=== PATIENT | female | born 1965 | race Caucasian/White ===

== ENCOUNTER 2019-04-28 18:52 | Inpatient (IN) | payer MEDICAID, OTHER ==
[~2019-04-28] VITALS: Ht 167.6 cm; Wt 101.7 kg
[2019-04-29 14:03] VITALS: BP 137/72
== END 2019-04-29 16:37 | disposition home or self-care (01) | DRG 313 ==
LOC: ED 21:12 → EDIP 21:19 → 5SO 22:37
PROVIDERS: ADMIT Family Medicine; ATTEND Family Medicine
DX: R07.2 Precordial pain (principal); E11.65 Type 2 diabetes mellitus with hyperglycemia; E66.9 Obesity, unspecified; Z85.118 Personal history of other malignant neoplasm of bronchus and lung; Z80.0 Family history of malignant neoplasm of digestive organs; Z83.49 Family history of other endocrine, nutritional and metabolic diseases; Z68.36 Body mass index [BMI] 36.0-36.9, adult
CPT/HCPCS: 36415; 71045; 71275; 78452; 80048; 80053; 80061; 82962; 83036; 83690; 84443; 84484; 85025; 85379; 93005; 93017; 96372; 99285; G0378; J1644; J2785; Q9967; A9502; C9898; J1815; J7030

== ENCOUNTER 2019-10-09 11:35 | Inpatient (IN) | payer MEDICAID ==
[~2019-10-09] VITALS: Ht 167.6 cm; Wt 102.1 kg
[~2019-10-09 11:35] MED LIST: AMIT50TA PO; ASPI81TA45 PO; AZIT500T PO; BENZ-17 PO; CEFD300C37 PO; CLON0.5T PO; ERTA1VIA IV; GUAI600T31 PO; HYDR-3240 PO; HYDR25TA6 PO; IBUP-1623 PO; INSU100I13 SQ-INSULIN; INSU100V14 SC; INSU100V8 SQ; LISI5TAB7 PO; LOSA100T14 PO; MELO7.5T31 PO; METF-688 PO; METF10002 PO; OLME5TAB4 PO; SIMV20TA PO; ZOLP10TA PO
[2019-10-09] MEDS ORDERED: ALBUTEROL/IPRATROPIUM 2.5MG/0.5MG, 3 ML ONE (12:23)
--- NOTE | 2019-10-09 12:29 | NUR ---
Pt alert and resting on gurney. Pt in gown and placed on pulse ox/HR monitor. Pt reports cough, congestion and possible fevers at home x1 week. Pt reports green tinged sputum when she coughs. Cough not heard during assessment. Lung clears. No increased WOB noted. PIV placed with blood draw and cultures x1. Lab at bedside for second culture draw. Call light within reach.
[2019-10-09] MEDS ORDERED: SODIUM CHLORIDE 0.9% 1,000ML IVBOLUS ONE ×2 (12:30→14:00)
[2019-10-09] MEDS ORDERED: ONDANSETRON 2MG/ML, 2ML IVPush ONE (12:30)
[2019-10-09] MEDS ORDERED: ALBUTEROL/IPRATROPIUM 2.5MG/0.5MG, 3 ML NPPB ONE (12:30)
[2019-10-09] MEDS ORDERED: ONDANSETRON 2MG/ML, 2ML ONE (12:33)
--- NOTE | 2019-10-09 12:41 | NUR ---
RT ASSUMED OVER TREAMTMENT AFTER RN STARTED.
[2019-10-09 12:45] LABS: BASOPHILS # (AUTO) 0.05 x10^3/uL (0-0.1); BASOPHILS % (AUTO) 0 % (0-1); EOSINOPHILS # (AUTO) 0.44 x10^3/uL (0-0.4); EOSINOPHILS % (AUTO) 4 % (1-7); LYMPHOCYTES # (AUTO) 2.36 x10^3/uL (1-3.4); LYMPHOCYTES % (AUTO) 19 % (22-44); MD NO; MEAN CORPUSCULAR HEMOGLOBIN 27.7 pg (27.0-34.8); MEAN CORPUSCULAR HGB CONC 32.8 g/dL (32.4-35.8); MEAN CORPUSCULAR VOLUME 84.5 fL (80-100); MEAN PLATELET VOLUME 9.5 fL (7.4-10.4); MONOCYTES # (AUTO) 0.51 x10^3/uL (0.2-0.8); MONOCYTES % (AUTO) 4 % (2-9); NEUTROPHILS % (AUTO) 72 % (42-75); PLATELET COUNT 303 x10^3/uL (130-400); RED BLOOD COUNT 4.83 x10^6/uL (3.82-5.3); RED CELL DISTRIBUTION WIDTH 13.2 % (9.6-15.2)
[2019-10-09 12:57] LABS: ALBUMIN 3.5 g/dL (3.4-5.0); ANION GAP 8 mmol/L (5-15); CALCIUM 9.2 mg/dL (8.5-10.1); CHLORIDE 104 mmol/L (98-107); CREATININE 0.69 mg/dL (0.55-1.02)
[2019-10-09] MEDS ORDERED: CEFTRIAXONE PMX 1GM/50ML 50 ML IVPB ONE (13:00)
[2019-10-09] MEDS ORDERED: AZITHROMYCIN 500 MG in SODIUM CHLORIDE 0.9% 250 ML IV ONE (13:00)
[2019-10-09 13:01] LABS: TROPONIN I < 0.015 ng/mL (0.000-0.045)
[2019-10-09] MEDS ORDERED: CEFTRIAXONE PMX 1GM/50ML 50 ML ONE (13:12)
--- NOTE | 2019-10-09 13:26 | NUR ---
Pt alert and resting on gurney. Rocephin started. Provider at bedside collecting flu sample.
--- NOTE | 2019-10-09 14:19 | NUR ---
Second PIV antibiotics started. VS retaken. Admitting MD at bedside.
[2019-10-09 14:21] LABS: RAPID INFLUENZA A Negative (Negative); RAPID INFLUENZA B Negative (Negative)
[2019-10-09] MEDS ORDERED: SODIUM CHLORIDE 0.9% 1,000 ML IV SCH (14:22)
[2019-10-09] MEDS ORDERED: ONDANSETRON ODT 4 MG PO PRN (14:30)
[2019-10-09] MEDS ORDERED: ACETAMINOPHEN 325 MG TABLET PO PRN (14:30)
[2019-10-09] MEDS ORDERED: ONDANSETRON 2MG/ML, 2ML IVPush PRN (14:30)
[2019-10-09] MEDS: CEFTRIAXONE PMX 2GM/50ML 50 ML IV SCH (14:30)
[2019-10-09] MEDS ORDERED: GLIP10TA13 PO (14:32)
[2019-10-09] MEDS ORDERED: INSU100I34 SQ ×2 (14:32)
--- NOTE | 2019-10-09 15:37 | NUR ---
Pt sleeping on-off on [facility]. Call light within reach.
[2019-10-09] MEDS ORDERED: HEPARIN 5,000 UNITS/ML, 1ML ONE (16:31)
[2019-10-09] MEDS: HEPARIN 5,000 UNITS/ML, 1ML SQ SCH (16:43)
--- NOTE | 2019-10-09 16:47 | NUR ---
Heparin given. Pt aware of wait for room and VU. Vital retaken. Call light in place.
[2019-10-09 17:11] VITALS: BP 122/78
[2019-10-09] MEDS ORDERED: ALBUTEROL SULFATE 2.5 MG/3 ML NPPB PRN (18:00)
[2019-10-09] MEDS: CARVEDILOL 3.125 MG TABLET PO SCH (18:36)
[2019-10-09] MEDS: INSULIN LISPRO 100 UNITS/ML, PEN SQ-INSULIN SCH ×2 (18:41→21:00)
[2019-10-09 19:03] VITALS: BP 135/69
[2019-10-09] MEDS ORDERED: INSULIN GLARGINE 100 UNITS/ML, PEN SQ-INSULIN SCH (21:00)
[2019-10-09] MEDS ORDERED: SIMVASTATIN 20 MG TABLET PO SCH (21:00)
[2019-10-09] MEDS: AMITRIPTYLINE 50 MG TABLET PO SCH ×2 (21:00→22:38)
[2019-10-09] MEDS ORDERED: ZOLPIDEM 5MG TABLET PO PRN (21:00)
[2019-10-09] MEDS: metFORMIN XR 500 MG TAB.ER.24H PO SCH (21:09)
[2019-10-09] MEDS: MELOXICAM 15 MG TABLET PO SCH (21:10)
[2019-10-10] MEDS: HEPARIN 5,000 UNITS/ML, 1ML SQ SCH ×2 (00:30→07:39)
[2019-10-10 02:31] VITALS: BP 126/79
[2019-10-10 04:57] LABS: BASOPHILS # (AUTO) 0.05 x10^3/uL (0-0.1); BASOPHILS % (AUTO) 1 % (0-1); EOSINOPHILS # (AUTO) 0.37 x10^3/uL (0-0.4); EOSINOPHILS % (AUTO) 3 % (1-7); LYMPHOCYTES # (AUTO) 2.81 x10^3/uL (1-3.4); LYMPHOCYTES % (AUTO) 25 % (22-44); MD NO; MEAN CORPUSCULAR HEMOGLOBIN 27.6 pg (27.0-34.8); MEAN CORPUSCULAR VOLUME 83.7 fL (80-100); MONOCYTES # (AUTO) 0.59 x10^3/uL (0.2-0.8); MONOCYTES % (AUTO) 5 % (2-9); NEUTROPHILS # (AUTO) 7.23 x10^3/uL (1.8-6.8); NEUTROPHILS % (AUTO) 65 % (42-75); PLATELET COUNT 278 x10^3/uL (130-400); RED BLOOD COUNT 4.23 x10^6/uL (3.82-5.3); RED CELL DISTRIBUTION WIDTH 13.5 % (9.6-15.2)
[2019-10-10 05:02] LABS: ANION GAP 5 mmol/L (5-15); CALCIUM 8.4 mg/dL (8.5-10.1); CHLORIDE 109 mmol/L (98-107)
[2019-10-10 05:05] LABS: CREATININE 0.64 mg/dL (0.55-1.02)
[2019-10-10] MEDS: CARVEDILOL 3.125 MG TABLET PO SCH (06:40)
[2019-10-10] MEDS: INSULIN LISPRO 100 UNITS/ML, PEN SQ-INSULIN SCH ×2 (07:00→12:07)
[2019-10-10 07:13] VITALS: BP 122/74
[2019-10-10] MEDS: AMITRIPTYLINE 50 MG TABLET PO SCH (07:38)
[2019-10-10] MEDS: metFORMIN XR 500 MG TAB.ER.24H PO SCH (07:38)
[2019-10-10] MEDS: MELOXICAM 15 MG TABLET PO SCH (07:38)
[2019-10-10] MEDS ORDERED: ASPIRIN 81 MG TABLET EC PO SCH (09:00)
[2019-10-10] MEDS ORDERED: LISINOPRIL 5 MG TABLET PO SCH (09:00)
[2019-10-10] MEDS ORDERED: CARV3.1212 PO (11:00)
[2019-10-10] MEDS ORDERED: GUAI12009 PO (11:03)
[2019-10-10] MEDS ORDERED: FLU VACC QS2019-20 36MOS UP/PF 0.5 ML IM-VACC ONE (12:30)
[2019-10-10 12:36] VITALS: BP 138/87
[2019-10-10] MEDS ORDERED: DOXY100T PO (13:42)
[2019-10-10] MEDS ORDERED: AMOX-291 PO (13:42)
[2019-10-10] MEDS: CEFTRIAXONE PMX 2GM/50ML 50 ML IV SCH (14:33)
== END 2019-10-10 16:00 | disposition home or self-care (01) | DRG 720 ==
LOC: ED 12:19 → EDIP 13:38 → 4NW 17:02
PROVIDERS: ADMIT Internal Medicine; ATTEND Internal Medicine
DX: A41.9 Sepsis, unspecified organism (principal); J86.9 Pyothorax without fistula; J15.9 Unspecified bacterial pneumonia; E66.9 Obesity, unspecified; G47.00 Insomnia, unspecified; J40 Bronchitis, not specified as acute or chronic; E11.65 Type 2 diabetes mellitus with hyperglycemia; Z80.1 Family history of malignant neoplasm of trachea, bronchus and lung; Z83.3 Family history of diabetes mellitus; Z85.118 Personal history of other malignant neoplasm of bronchus and lung; Z90.710 Acquired absence of both cervix and uterus; Z87.891 Personal history of nicotine dependence; Z68.36 Body mass index [BMI] 36.0-36.9, adult; Z90.89 Acquired absence of other organs; Z23 Encounter for immunization
CPT/HCPCS: 36415; 71046; 80048; 82040; 82962; 83036; 83605; 83880; 84145; 84484; 85025; 87040; 87400; 90686; 93005; G0378; J0456; J0696; J1644; J2405; J7620; J1815; J7030; J7050